=== PATIENT | female | born 1995 | race Hispanic/Latino ===

== ENCOUNTER 2017-07-29 08:21 | Emergency (ER) | payer SELFPAY ==
[2017-07-29 08:43] VITALS: BP 111/74
== END 2017-07-29 08:41 | disposition left against medical advice (07) ==
LOC: ED 08:21
DX: J00 Acute nasopharyngitis [common cold] (principal); Z53.21 Procedure and treatment not carried out due to patient leaving prior to being seen by health care provider

== ENCOUNTER 2020-03-11 23:40 | Emergency (ER) | payer SELFPAY ==
--- NOTE | 2020-03-12 01:55 | Emergency Department Report ---
ED General Adult HPI - General Chief complaint: Earache Stated complaint: RT EARACHE/DRAINING FLUID Time Seen by Provider: 03/12/20 00:11 Source: patient Mode of arrival: Ambulatory Limitations: No Limitations - History of Present Illness Initial comments: 24-year-old female patient presents with complaints of right ear pain and drainage x5 months. Patient reports history of recurrent ear infections many years ago and states she has tubes placed in her ears bilaterally. She rates her current pain as a 3/10 in severity and describes the ear drainage as yellow in color. She reports that she has used her family members leftover amoxicillin twice in the past 2 months and her symptoms improved with these medications, however returned again. Patient also denies any trauma to the ear or eardrum. She denies any bloody drainage from the ear, headache, vision changes, numbness/tingling/weakness in her limbs, confusion, difficulty with s peech/ambulation or memory loss, or history of cancer. She denies currently following with an ENT specialist -: month(s) - Related Data Previous Rx's Medication Instructions Recorded Last Taken Type Azithromycin [Zithromax Z-MARCELLA] 0 mg PO DAILY #6 tab 03/12/20 Unknown Rx Ofloxacin 0.3% [Floxin 0.3% Otic] 10 ml OT QDAY 7 Days #1 bottle 03/12/20 Unknown Rx Allergies Allergy/AdvReac Type Severity Reaction Status Date / Time Penicillins Allergy Unknown Verified 03/11/20 23:51 ED Review of Systems ROS: Stated complaint: RT EARACHE/DRAINING FLUID Other details as noted in HPI Constitutional: denies: chills, diaphoresis, fever, malaise, weakness ENT: hearing loss (Mild per patient). denies: throat pain Respiratory: denies: cough, shortness of breath Cardiovascular: denies: chest pain Endocrine: denies: excessive sweating Gastrointestinal: denies: nausea, vomiting Neurological: denies: headache, weakness, numbness, paresthesias, confusion, abnormal gait Hematological/Lymphatic: denies: easy bleeding, swollen glands ED Past Medical Hx - Past Medical History Previous Medical History?: No - Surgical History Past Surgical History?: Yes Additional Surgical History: tubes to ear - Social History Smoking Status: Current Every Day Smoker Substance Use Type: Alcohol - Medications Home Medications: Home Medications Medication Instructions Recorded Confirmed Last Taken Type Azithromycin [Zithromax Z-MARCELLA] 0 mg PO DAILY #6 tab 03/12/20 Unknown Rx Ofloxacin 0.3% [Floxin 0.3% Otic] 10 ml OT QDAY 7 Days #1 bottle 03/12/20 Unknown Rx ED Physical Exam - General Limitations: No Limitations General appearance: alert, in no apparent distress - Head Head exam: Present: atraumatic, normocephalic - Eye Eye exam: Present: normal appearance, PERRL. Absent: scleral icterus - ENT ENT exam: Present: normal exam, normal orophraynx - Expanded ENT Exam Expanded Ear exam: Present: other (There is some erythema noted to the right ear canal with crusted/dried yellow drainage noted without blood; blue station tube noted in the right TM; possible small cholesteatoma noted behind the TM; no erythema or bulging of the right TM noted) TM/Canal exam: Canal Discharge: Right TM, Canal Tenderness: Right TM - Neck Neck exam: Present: normal inspection, full ROM. Absent: tenderness, lymphadenopathy - Respiratory Respiratory exam: Present: normal lung sounds bilaterally. Absent: respiratory distress - Cardiovascular Cardiovascular Exam: Present: regular rate, normal rhythm. Absent: systolic murmur, diastolic murmur, rubs, gallop - Neurological Exam Neurological exam: Present: alert, oriented X3, normal gait. Absent: motor sensory deficit - Psychiatric Psychiatric exam: Present: normal affect, normal mood - Skin Skin exam: Present: warm, dry, intact, normal color. Absent: rash ED Course Vital Signs 03/11/20 03/12/20 23:48 02:29 Temperature 98.2 F Pulse Rate 114 H 98 H Respiratory 18 16 Rate Blood Pressure 127/65 Blood Pressure 114/74 [Right] O2 Sat by Pulse 97 Oximetry ED Medical Decision Making - Medical Decision Making 24-year-old female patient presents with complaints of right ear pain and drainage x5 months. Patient reports history of recurrent ear infections many years ago and states she has tubes placed in her ears bilaterally. She rates her current pain as a 3/10 in severity and describes the ear drainage as yellow in color. She reports that she has used her family members leftover amoxicillin twice in the past 2 months and her symptoms improved with these medications, however returned again. Patient also denies any trauma to the ear or eardrum. She denies any bloody drainage from the ear, headache, vision changes, numbness/tingling/weakness in her limbs, confusion, difficulty with speech/ambulation or memory loss, or history of cancer. She denies currently following with an ENT specialist On exam, there is drainage noted in the ear canal without swelling. Eustachian tube noted in right TM; no bulging or erythema of the TM noted. Will treat for chronic otitis externa/media. Discussed importance of follow-up with ENT for further assessment and rule out of cholesteatoma. She denies any neuro symptoms. Patient's vitals are normal, she is well-appearing, and stable for discharge home. Strict return precautions were discussed in great detail with patient who verbalized understanding Critical care attestation.: If time is entered above; I have spent that time in minutes in the direct care of this critically ill patient, excluding procedure time. ED Disposition Clinical Impression: External otitis of right ear Qualifiers: Otitis externa type: other infective Chronicity: chronic Qualified Code(s): H60.391 - Other infective otitis externa, right ear Chronic otitis media Qualifiers: Otitis media type: other nonsuppurative Laterality: right Qualified Code(s): H65.491 - Other chronic nonsuppurative otitis media, right ear Disposition: DC-01 TO HOME OR SELFCARE Is pt being admited?: No Condition: Stable Instructions: Otitis Externa (ED), Otitis Media (ED) Prescriptions: Ofloxacin 0.3% [Floxin 0.3% Otic] 10 ml OT QDAY 7 Days #1 bottle Azithromycin [Zithromax Z-MARCELLA] 0 mg PO DAILY #6 tab Referrals: THOMPSON VIGIL MD [Staff Physician] - 03/13/20
[2020-03-12 02:30] VITALS: BP 114/74
== END 2020-03-12 02:28 | disposition home or self-care (01) ==
LOC: ED 23:40
DX: H60.91 Unspecified otitis externa, right ear (principal); H66.91 Otitis media, unspecified, right ear; F17.200 Nicotine dependence, unspecified, uncomplicated; Z79.899 Other long term (current) drug therapy; Z98.890 Other specified postprocedural states; Z88.0 Allergy status to penicillin
CPT/HCPCS: 99282

== ENCOUNTER 2020-12-08 05:40 | Emergency (ER) | payer OTHER ==
--- NOTE | 2020-12-08 07:14 | Emergency Department Report ---
ED Female HPI - General Chief complaint: Urogenital-Female Stated complaint: FOREIGN OBJECT IN VAGINAL AREA Time Seen by Provider: 12/08/20 07:13 Source: patient Mode of arrival: Ambulatory Limitations: No Limitations - History of Present Illness Initial comments: 25-year-old female presents to the emergency room stating that she feels like something is in her vaginal x1 week. Patient states she thinks she has a tampon. She complains of lower abdominal discomfort. She denies any nausea no vomiting. She denies any vaginal bleeding no vaginal discharge. Patient reports she has no concerns for STD as she sleeps only with women. Patient reports her last menstrual period was 12/01/2020. Patient currently does not take any medication and has an allergy to penicillin. She reports that her abdominal discomfort just feels like cramps. Onset/Timin -: week(s) Location: suprapubic Severity scale (0 -10): 6 Quality: cramping Consistency: intermittent Improves with: none Worsens with: none Are you Now?: No Last Menstrual Period: 12/01/20 EDC: 09/07/21 Associated Symptoms: abdominal pain - Related Data Sexually active: Yes (women) : 0 Previous Rx's Medication Instructions Recorded Last Taken Type Azithromycin [Zithromax Z-MARCELLA] 0 mg PO DAILY #6 tab 03/12/20 Unknown Rx Ofloxacin 0.3% [Floxin 0.3% Otic] 10 ml OT QDAY 7 Days #1 bottle 03/12/20 Unknown Rx Nitrofurantoin Walton/M-Cryst 100 mg PO Q12HR 7 Days #14 capsule 12/08/20 Unknown Rx [Macrobid CAP] Allergies Allergy/AdvReac Type Severity Reaction Status Date / Time Penicillins Allergy Unknown Verified 03/11/20 23:51 ED Review of Systems ROS: Stated complaint: FOREIGN OBJECT IN VAGINAL AREA Other details as noted in HPI Comment: All other systems reviewed and negative ED Past Medical Hx - Past Medical History Previous Medical History?: No - Surgical History Past Surgical History?: Yes Additional Surgical History: tubes to ear - Social History Smoking Status: Never Smoker Substance Use Type: None - Medications Home Medications: Home Medications Medication Instructions Recorded Confirmed Last Taken Type Azithromycin [Zithromax Z-MARCELLA] 0 mg PO DAILY #6 tab 03/12/20 Unknown Rx Ofloxacin 0.3% [Floxin 0.3% Otic] 10 ml OT QDAY 7 Days #1 bottle 03/12/20 Unknown Rx Nitrofurantoin Walton/M-Cryst 100 mg PO Q12HR 7 Days #14 capsule 12/08/20 Unknown Rx [Macrobid CAP] ED Physical Exam - General Limitations: No Limitations General appearance: alert, in no apparent distress - Head Head exam: Present: atraumatic, normocephalic - Eye Eye exam: Present: normal appearance - ENT ENT exam: Present: normal external ear exam - Neck Neck exam: Present: full ROM - Respiratory Respiratory exam: Absent: accessory muscle use - GI/Abdominal GI/Abdominal exam: Present: soft, tenderness (Suprapubic). Absent: distended - Rectal Rectal exam: Present: deferred - External exam: Present: normal external exam. Absent: erythema, swelling, lesions Speculum exam: Present: normal speculum exam. Absent: erythema, vaginal discharge, cervical discharge, vaginal bleeding, foreign body Bi-manual exam: Present: normal bi-manual exam. Absent: cervical motion ten dernes, adnexal tenderness, adnexal mass, uterine enlargement, uterine tenderness - Extremities Exam Extremities exam: Present: normal inspection - Back Exam Back exam: Present: normal inspection, full ROM - Neurological Exam Neurological exam: Present: alert, oriented X3 - Psychiatric Psychiatric exam: Present: normal affect, normal mood - Skin Skin exam: Present: warm, dry, intact, normal color. Absent: rash ED Course Vital Signs 12/08/20 12/08/20 06:31 07:34 Temperature 98.2 F Pulse Rate 118 H 125 H Respiratory 14 20 Rate Blood Pressure 121/85 Blood Pressure 122/85 [Left] O2 Sat by Pulse 100 97 Oximetry ED Medical Decision Making - Medical Decision Making 25-year-old female presents to the emergency room stating that she feels like something is in her vaginal x1 week. Patient states she thinks she has a tampon. She complains of lower abdominal discomfort. She denies any nausea no vomiting. She denies any vaginal bleeding no vaginal discharge. Patient reports she has no concerns for STD as she sleeps only with women. Patient reports her last menstrual period was 12/01/2020. Patient currently does not take any medication and has an allergy to penicillin. She reports that her abdominal discomfort just feels like cramps. Urinalysis GC chlamydia and wet prep has been sent. Vaginal exam does not show any foreign body. Gonorrhea and Chlamydia was sent out when not received for 3 to 5 days. Wet prep is negative for any trichomonas, bacterial vaginosis or yeast. Urinalysis shows some protein 9 WBCs and a trace of leukoesterase. I will treat patient with Macrobid 100 mg p.o. twice daily for 7 days. Patient to take Tylenol or ibuprofen for pain. R ecommend patient to follow-up with her [facility] if she has any further concerns. Critical care attestation.: If time is entered above; I have spent that time in minutes in the direct care of this critically ill patient, excluding procedure time. ED Disposition Clinical Impression: UTI (urinary tract infection) Disposition: TO HOME OR SELFCARE Is pt being admited?: No Does the pt Need Aspirin: No Condition: Stable Instructions: Urinary Tract Infection, Adult, [id number] Additional Instructions: Urinalysis shows that she have a urinary tract infection. Your cultures so far are negative. I will not get the chlamydia gonorrhea results back until 3 to 5 days. I am not concerned for any STD. Follow-up with an [facility]. Take Tylenol or ibuprofen as needed for pain. Be sure to increase your fluid intake. Void after intercourse. Prescriptions: Nitrofurantoin Walton/M-Cryst [Macrobid CAP] 100 mg PO Q12HR 7 Days #14 capsule Referrals: PRIMARY CAREMD [Primary Care Provider] - 3-5 Days [facility] [Provider Group] - 3-5 Days Forms: Work/School Release Form(ED)
[2020-12-08 07:23] LABS: Bacteria,Urine 1+ /HPF (Negative); Bilirubin,Urine NEG (Negative); Blood,Urine NEG (Negative); Color,Urine Yellow (Yellow); Mucus,Urine FEW /HPF
[2020-12-08 07:27] LABS: HCG Qualitative,Urine Negative (Negative)
[2020-12-08] MEDS ORDERED: ACETAMINOPHEN 500 MG TAB PO ONE (07:35)
[2020-12-08 07:36] VITALS: BP 122/85
== END 2020-12-08 08:32 | disposition home or self-care (01) ==
LOC: ED 05:40
DX: N39.0 Urinary tract infection, site not specified (principal); Z88.0 Allergy status to penicillin; Z79.899 Other long term (current) drug therapy; Z98.890 Other specified postprocedural states
CPT/HCPCS: 81001; 81025; 87086; 87210; 87591